=== PATIENT | male | born 1975 | race Caucasian/White ===

== ENCOUNTER 2016-11-12 13:12 | Emergency (ER) | payer OTHER ==
[2016-11-12 13:15] VITALS: BP 140/93
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
== END 2016-11-12 13:53 | disposition home or self-care (01) ==
LOC: ER 13:12
DX: S06.0X0A Concussion without loss of consciousness, initial encounter (principal); S29.012A Strain of muscle and tendon of back wall of thorax, initial encounter; S16.1XXA Strain of muscle, fascia and tendon at neck level, initial encounter; Z86.73 Personal history of transient ischemic attack (TIA), and cerebral infarction without residual deficits; V89.2XXA Person injured in unspecified motor-vehicle accident, traffic, initial encounter; Y93.89 Activity, other specified; Y99.8 Other external cause status; Y92.488 Other paved roadways as the place of occurrence of the external cause
CPT/HCPCS: 99281

== ENCOUNTER → 2018-06-28 | Outpatient (CLI) | payer BC, OTHER ==
--- NOTE | 2018-06-29 11:31 | RAD ---
EXAM: Sacral sonogram. HISTORY: Palpable lump status post pilonidal cyst removal. TECHNIQUE: Sonographic imaging of the intergluteal fold and surrounding soft tissue was performed. COMPARISON: None. FINDINGS: There is no suspicious finding at the site of palpable concern at the site of probable concern. Specifically, no mass or fluid collection is seen at the site of prior reported pilonidal cyst removal. IMPRESSION: Unremarkable sonographic imaging at the site of palpable concern and prior pilonidal cyst removal. MRI can be considered if there is concern for a sonographically occult lesion. Electronically signed by: Chetna Rodriguez MD (06/29/2018 11:28 AM) [id number]
== END | disposition home or self-care (01) ==
LOC: US 09:12
PROVIDERS: ATTEND Surgery
DX: Z48.817 Encounter for surgical aftercare following surgery on the skin and subcutaneous tissue (principal); Z98.890 Other specified postprocedural states
CPT/HCPCS: 76536